=== PATIENT | female | born 1985 | race Caucasian/White ===

== ENCOUNTER 2016-11-20 19:08 | Inpatient (IN) | payer OTHER ==
--- NOTE | ~2016-11-20 | DS ---
Unit #: [id number] #: [id number] [facility]: [facility] [id number] [facility] [address] [place] [address] [id number] I MR#: [id number] NAME: PATRIC SCHWARTZ. ROOM: [facility] Age: 31 Sex: F Admission Date: 11/20/2016 : 1985 Discharge Date: 11/24/2016 Attending Physician: Elvia Jesus M.D. Primary Care Physician: Generic Doctor Not In System DISCHARGE SUMMARY IDENTIFYING DATA Ms. Schwartz is a 31-year-old white female, who was self-referred to the hospital. DISCHARGE DIAGNOSES Psychiatric: Major depressive disorder, recurrent, moderate, without psychotic features. Medical: Hypothyroidism. Stressors: Moderate psychosocial stressors. HISTORY OF PRESENT ILLNESS Please see initial psychiatric evaluation for details. PAST PSYCHIATRIC HISTORY Please see initial psychiatric evaluation for details. PAST MEDICAL HISTORY Please see initial psychiatric evaluation for details. HOSPITAL COURSE The patient was admitted to the adult psychiatric unit at [facility] roxanne Walters and was oriented to the hospital environment. Routine p.r.n. medications were initiated, and she was started back on her home medications, Celexa and BuSpar were started for depression and anxiety and was closely monitored. She was taking the medications regularly and was tolerating them fairly well and was able to show a fairly decent and therapeutic response and as such, it was decided that she will be discharged home and will continue treatment on an outpatient basis. DISCHARGE MEDICATIONS Celexa 20 mg a day for depression and BuSpar 10 mg b.i.d. for anxiety. DISCHARGE CONDITION Stable. PROGNOSIS Fair. Dictated by... Denny Jain/manju Unit #: [id number] #: [id number] Patient: PATRIC SCHWARTZ TD: 01/06/2017 23:31 JOB #: [id number] DISCHARGE SUMMARY Page 1 of 1 X Elvia Jesus MD X DISCHARGE SUMMARY
--- NOTE | ~2016-11-20 | PN ---
Unit #: [id number] #: [id number] Patient: PATRIC SCHWARTZ [id number] [facility] [address] [place] [address] [id number] I MR#: [id number] NAME: PATRIC SCHWARTZ. ROOM: P212 Age: 31 Sex: F Admission Date: 11/20/2016 : 1985 Attending Physician: Elvia Jesus M.D. Admitting Physician: Elvia Jesus M.D. Primary Care Physician: Lynsey Doctor Not In System [facility] PROGRESS NOTES DATE 11/24/2016 DISCUSSION Ms. Schwartz is a 31-year-old white female who was seen today and chart was reviewed and case was discussed with the staff. She has been anxious, withdrawn though has not shown any agitation, irritability and has been cooperative with treatment recommendations. MENTAL STATUS EXAMINATION Young white female who was casually dressed with fair personal hygiene, appears to be in no acute distress or discomfort. She was awake and alert on interaction with intact orientation. Her mood was anxious with congruent affect. She denies any suicidal or homicidal ideations. Also, denies any auditory or visual hallucinations. Her insight and judgement remains slightly impaired. TREATMENT PLAN 1. We will continue her on her current medications and treatment protocol. We will monitor her response and make further adjustments as needed. 2. We will continue to follow up. Dictated by... Denny Jain/tanya TD: 11/26/2016 04:31 JOB #: [id number] Unit #: [id number] #: [id number] Patient: PATRIC SCHWARTZ [facility] PROGRESS NOTES Page 1 of 1 X Elvia Jesus MD PROGRESS NOTE
--- NOTE | ~2016-11-20 | PN ---
Unit #: [id number] #: [id number] Patient: PATRIC SCHWARTZ [id number] [facility] [address] [place] [address] [id number] I MR#: [id number] NAME: PATRIC SCHWARTZ ROOM: P212 Age: 31 Sex: F Admission Date: 11/20/2016 : 1985 Attending Physician: Elvia Jesus M.D. Admitting Physician: Denny Jain NOTES DATE OF SERVICE: 11/23/2016 SUBJECTIVE Ms. Schwartz is a 31-year-old white female who was seen today and chart was reviewed, and case was discussed with the staff. She has been anxious, withdrawn, and rather seclusive to herself, and has been cooperative with treatment recommendations. MENTAL STATUS EXAMINATION Young white female who was casually dressed with fair personal hygiene and appears to be in no acute distress or discomfort. She was awake and alert on interaction with intact orientation. Her mood was anxious with a congruent affect. She denies any suicidal or homicidal ideations. Her insight and judgment remain slightly impaired. TREATMENT PLAN We will continue on her current treatment protocol. We will monitor her response and make further adjustments as needed. Dictated by... Denny Jain/billl TD: 11/24/2016 11:01 JOB #: [id number] [facility] NOTES Page 1 of 1 X Elvia Jesus MD X PROGRESS NOTE
--- NOTE | ~2016-11-20 | HP ---
Unit #: [id number] #: [id number] Patient: PATRIC WILLIAMSON [id number] [place] [address] [id number] I MR#: [id number] NAME: PATRIC WILLIAMSON. ROOM: P212 Age: 31 Sex: F Admission Date: 11/20/2016 : 1985 Attending Physician: Elvia Jesus M.D. Admitting Physician: Elvia Jesus M.D. Primary Care Physician: Generic Doctor Not In System HISTORY AND PHYSICAL HISTORY OF PRESENT ILLNESS Patric is a 31 year old admitted to [address] [place] [address] with depression and verbalizing wanting to hurt herself. PAST MEDICAL HISTORY Hypothyroidism. She has been noncompliant with medication for years. PAST SURGICAL HISTORY 1. Tubal ligation. 2. Oral surgery. ALLERGIES Penicillin, ibuprofen. SOCIAL HISTORY Smokes less than 1 pack per day. Denies alcohol. Admits to using marijuana on occasion. FAMILY HISTORY Medically noncontributory. REVIEW OF SYSTEMS CONSTITUTIONAL: No fever or chills. HEENT: Denies any sore throat, ear pain or runny nose. CARDIOVASCULAR: Denies chest pain, irregular heart rhythm or palpitations. CHEST: Denies shortness of breath or cough. No hemoptysis. GASTROINTESTINAL: Denies nausea, vomiting, diarrhea or chronic constipation. ENDOCRINE: Denies history of increased thirst or urination. No recent significant weight loss or gain. GENITOURINARY: Denies dysuria, frequency, or hematuria. SKIN: Denies any rashes. HEMATOLOGIC: Denies history of increased bleeding or bruising. MUSCULOSKELETAL: Denies any hot, swollen joints. No generalized muscle pain. NEUROLOGIC: Denies problems with vision or speech. No frequent, severe headaches. No numbness, tingling or weakness in any extremities. Denies loss of bladder or bowel control. CURRENT MEDICATIONS 1. BuSpar 10 mg b.i.d. 2. Celexa 20 mg daily. 3. Vistaril 50 mg q. 6 hours p.r.n. Unit #: [id number] #: [id number] Patient: PATRIC WILLIAMSON 4. Desyrel p.r.n. 5. Milk of Magnesia p.r.n. 6. Maalox p.r.n. 7. Tylenol p.r.n. 8. Nicotine patch 7 mg daily. PHYSICAL EXAMINATION GENERAL: Alert, well-nourished, in no apparent distress. VITAL SIGNS: Blood pressure 114/80, heart rate 100, respirations 16, temperature 98.6. WEIGHT: 120. HEIGHT: 5 feet 4 inches. SKIN: Warm and dry without rash or lesion. HEENT: Normocephalic. TMs not viewed. Oral and nasal passages clear. Conjunctivae clear. PERRLA. EOMs intact. NECK: Significant enlargement of the isthmus and right pole of the thyroid. HEART: Regular rate and rhythm without murmur. LUNGS: Clear. ABDOMEN: Soft, nontender. : Not done. EXTREMITIES: No evidence of cyanosis, clubbing or edema. Moves all without focal deficit. NEUROLOGICAL: Grossly within normal limits. Cranial Nerves: II: Visual churchill are intact. III, IV AND : Extraocular movements are intact. Pupils are equal, round and reactive to light. V: Facial sensation is grossly normal. VII: Facial movements and expression are normal. VIII: Auditory acuity grossly intact. IX, X: Uvula is midline. Phonation is normal. XI: Patient shrugs shoulders and turns head normally. XII: Tongue protrudes in the midline. Sensory and Motor Function: Sensory and motor sensation is grossly normal. Motor: moves all extremities well. Coordination: Gait is normal. Deep Tendon Reflexes: Intact. DIAGNOSTIC STUDIES ADMISSION LABS: TSH greater than 100. Free T4, 0.32. IMPRESSION 1. Psychiatric admission. 2. Hypothyroidism. Patient has been noncompliant with medications for years. 3. Goiter. RECOMMENDATIONS PSYCHIATRIC: Per psychiatrist. MEDICAL: 1. See no contraindications to participate in facility's activities. 2. Start Synthroid 0.025 mg daily. She will need to follow up with PCP because this medication will need to be increased. MEDICAL PROGNOSIS Good. MEDICAL CONDITION Stable. Unit #: [id number] #: [id number] Patient: PATRIC WILLIAMSON Dictated by... Ele Wyatt P.A.-C. for Denny Nettles/miguel TD: 11/21/2016 18:13 JOB #: [id number] HISTORY AND PHYSICAL Page 1 of 1 X Ele Wyatt HISTORY AND PHYSICAL
--- NOTE | ~2016-11-20 | PN ---
Unit #: [id number] #: [id number] Patient: PATRIC SCHWARTZ [id number] [facility] [address] [place] [address] [id number] MR#: [id number] NAME: PATRIC SCHWARTZ. ROOM: P212 Age: 31 Sex: F Admission Date: 11/20/2016 : 1985 Attending Physician: Elvia Jesus M.D. Admitting Physician: Elvia Jesus M.D. Primary Care Physician: Lynsey Doctor Not In System [facility] PROGRESS NOTES DATE 11/21/2016 DISCUSSION Ms. Schwartz is a 31-year-old white female who was seen today and chart was reviewed and case was discussed with the staff. She has been anxious, withdrawn and rather seclusive to herself. Meanwhile, she has been cooperative with treatment recommendations as she has been taking the medications and tolerating them fairly well with no reported side effects. MENTAL STATUS EXAMINATION Young white female who was casually dressed with fair personal hygiene, appears to be in no acute distress or discomfort. She was awake and alert on interaction with intact orientation. Her mood was anxious with congruent affect. Her speech was slow and goal-directed. She denies any suicidal or homicidal ideations. Also, denies any auditory or visual hallucinations. Her insight and judgement remains slightly impaired. TREATMENT PLAN 1. We will continue her on her current medications and treatment protocol. We will monitor her response and make further adjustments as needed. 2. We will continue to follow up. Dictated by... Denny Jain/tanya TD: 11/25/2016 03:26 JOB #: [id number] Unit #: [id number] #: [id number] Patient: PATRIC SCHWARTZ [facility] PROGRESS NOTES Page 1 of 1 X Elvia Jesus MD PROGRESS NOTE
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
--- NOTE | ~2016-11-20 | PN ---
Unit #: [id number] #: [id number] Patient: APTRIC SCHWARTZ [id number] [facility] [address] [place] [address] [id number] I MR#: [id number] NAME: PATRIC SCHWARTZ. ROOM: P212 Age: 31 Sex: F Admission Date: 11/20/2016 : 1985 Attending Physician: Elvia Jesus M.D. Admitting Physician: Elvia Jesus M.D. Primary Care Physician: Generic Doctor Not In System [facility] PROGRESS NOTES DATE OF SERVICE November 22, 2016 DISCUSSION Ms. Schwartz is a 31-year-old, white female who was seen today and chart was reviewed. Her case was discussed with the staff. She has been anxious and withdrawn, but has agitation, irritability, or behavioral problems and has been cooperative with treatment recommendations and has been taking medications and tolerating them fairly well with no reported side effects. MENTAL STATUS EXAMINATION Young, white female who was casually dressed with a fair personal hygiene and appears to be in no acute distress or discomfort. She was awake and alert on interaction with intact orientation. Her mood is anxious with a congruent affect. Speech is slow and goal-directed. Patient denies any suicidal or homicidal ideation and also denies any auditory or visual hallucinations. Her insight and judgement remain slightly impaired. TREATMENT PLAN 1. Continue her on current medications and treatment protocol. Will monitor her response to the medications and make further adjustments as needed. 2. We will continue to follow up. Dictated by... Denny Jain/bhargav TD: 11/25/2016 11:51 JOB #: [id number] Unit #: [id number] #: [id number] Patient: PATRIC SCHWARTZ [facility] PROGRESS NOTES Page 1 of 1 X Elvia Jesus MD PROGRESS NOTE
[2016-11-21 09:57] LABS: BASOPHIL# 0.1 X10e3 (0-0.3); BASOPHIL% 0.7 % (0-2.5); EOSINOPHIL# 0.4 X10e3 (0-0.7); EOSINOPHIL% 4.4 % (0.0-7.0); HEMATOCRIT 41.7 % (35.0-45.0); HEMOGLOBIN 13.6 gm/dL (12.0-16.0); LYMPHOCYTE% 37.4 % (17.0-45.0); MEAN CELL VOLUME 92.3 FL (83-96); MEAN CORPUSCULAR HEMOGLOBIN 30.1 PG (28-34); MEAN CORPUSCULAR HGB CONC 32.6 g/dL (30-36); MEAN PLATELET VOLUME 8.2 FL (6.5-11.5); MONOCYTE# 0.7 X10e3 (0-1.0); MONOCYTE% 8.2 % (3.0-12.0); NEUTROPHIL% 49.3 % (40-75); PLATELET COUNT 287 X10e3 (140-420); RED BLOOD COUNT 4.52 X10e (3.90-5.30); RED CELL DISTRIBUTION WIDTH 12.7 % (11.0-15.5)
[2016-11-21 10:02] LABS: DIFF IND NO
[2016-11-21 10:35] LABS: THYROID STIMULATING HORMONE >100.00 uIU/ml (0.34-5.60)
[2016-11-21 10:40] LABS: URINE APPEARANCE CLOUDY; URINE BILIRUBIN NEG (NEG); URINE BLOOD NEG (NEG); URINE COLOR YELLOW; URINE GLUCOSE NEG (NEG); URINE KETONE NEG (NEG); URINE LEUKOCYTE ESTERASE NEG (NEG); URINE NITRATE NEG (NEG); URINE PROTEIN NEG (NEG); URINE UROBILINOGEN 0.2 MG/DL (NEG)
[2016-11-21 10:43] LABS: FREE THYROXIN (T4) 0.32 ng/dL (0.58-1.64)
[2016-11-21 10:45] LABS: ALBUMIN SERUM 3.3 g/dL (3.5-5.0); BILIRUBIN,TOTAL 0.4 mg/dL (0.2-2.0); BUN/CREATININE RATIO 15.55; CALCIUM SERUM 8.9 mg/dL (8.4-10.2); CREATININE SERUM 0.9 mg/dL (0.6-1.4); GLOM FILT RATE Estimated 84.1 mL/min (>60)
[2016-11-21 11:37] LABS: AMPHETAMINE POS (NEG); BARBITURATES NEG (NEG); BENZODIAZEPINES NEG (NEG); COCAINE NEG (NEG); MARIJUANA NEG (NEG); OPIATES NEG (NEG); TRICYCLIC ANTIDEPRESSANTS NEG (NEG); U METHADONE NEG (NEG)
== END 2016-11-24 17:44 | DRG 885 ==
LOC: P2S 19:08
PROVIDERS: Psychiatry & Neurology Psychiatry
DX: F33.1 Major depressive disorder, recurrent, moderate (principal); R45.851 Suicidal ideations; Z91.14 Patient's other noncompliance with medication regimen; F41.1 Generalized anxiety disorder; Z91.419 Personal history of unspecified adult abuse; Z59.0 Homelessness; Z88.0 Allergy status to penicillin; E03.9 Hypothyroidism, unspecified; Z98.51 Tubal ligation status; F17.210 Nicotine dependence, cigarettes, uncomplicated; F12.90 Cannabis use, unspecified, uncomplicated; E04.9 Nontoxic goiter, unspecified
CPT/HCPCS: 80053; 80307; 81003; 84439; 84443; 84703; 85025